=== PATIENT | female | born 1955 | race Caucasian/White ===

== ENCOUNTER 2025-02-12 14:36 | Outpatient (CLI) | payer MEDICARE, OTHER, SELFPAY ==
--- NOTE | 2025-02-12 14:40 | MM_ITS ---
WS: [id number] BILATERAL 3D TOMOSYNTHESIS DIGITAL SCREENING MAMMOGRAPHY WITH CAD CLINICAL INFORMATION: SCREENING HISTORY: Screening mammogram. No current complaints. COMPARISON: 2016 TECHNIQUE: Bilateral CC and MLO views. FINDINGS: No recent comparisons. Comparison 2016. Bilateral breast implants. Scattered fibroglandular densities bilaterally. No suspicious focal mass, asymmetry, calcifications, or architectural distortion. No evidence of malignancy. MM/MM scr tomosynthesis [id number] IMPRESSION: DENSITY: There are scattered areas of fibroglandular density. BI-RADS: 2 - Benign. FOLLOW UP: 1 Year Follow-up Recommend return to annual screening mammography.
== END 2025-02-12 14:37 | disposition home or self-care (01) ==
LOC: RAD 14:39
PROVIDERS: Family Provider Nurse Practitioner Family; PCP Family Medicine; Visit Provider Family Medicine
DX: Z12.31 Encounter for screening mammogram for malignant neoplasm of breast (principal); R92.323 Mammographic fibroglandular density, bilateral breasts
CPT/HCPCS: 77063; 77067

== ENCOUNTER 2025-02-14 07:09 | Outpatient (CLI) | payer MEDICARE, OTHER, SELFPAY ==
--- NOTE | 2025-02-14 07:19 | CT_ITS ---
WS: [id number] CT HEAD TECHNIQUE: Noncontrast and contrast-enhanced CT of the head. CLINICAL INFORMATION: INTERMITTENT CONFUSION COMPARISON: None. DLP: 2098.[address] scans at [facility] use at least one of these dose optimization techniques: automated exposure control; mA and/or kV adjustment per patient size (includes targeted exams where dose is matched to clinical indication); or iterative reconstruction. FINDINGS: No evidence of intracranial hemorrhage or mass effect. Ventricular system is patent. No extra-axial fluid collections. No evidence of mass or mass effect. No abnormal intracranial enhancement. Minimal small vessel changes. Paranasal sinuses are well aerated. Mastoid air cells are well aerated. CT/CT head wo/w con [id number] IMPRESSION: 1. No evidence intracranial hemorrhage or mass effect. 2. No abnormal intracranial enhancement. 3. Minimal small vessel changes. 4. Vascular calcification.
[2025-02-14 07:43] LABS: Blood Urea Nitrogen 9 mg/dL (8-23); Glomerular Filtration Rate 99.7 mL/min (90-130)
[2025-02-14] MEDS: iohexol 350 mg/mL 500 mL Btl (per mL) IV (07:48)
== END 2025-02-14 07:10 | disposition home or self-care (01) ==
PROVIDERS: PCP Family Medicine; Visit Provider Family Medicine
DX: R41.0 Disorientation, unspecified (principal); I67.2 Cerebral atherosclerosis
CPT/HCPCS: 70470; 82565; 84520

== ENCOUNTER 2025-06-23 15:55 | Outpatient (CLI) | payer MEDICARE, OTHER, SELFPAY ==
--- NOTE | 2025-06-23 16:05 | CTR_ITS ---
PROCEDURE INFORMATION: Exam: CT Maxillofacial Without Contrast Exam date and time: 06/23/2025 4:17 PM Age: 69 years old Clinical indication: Injury or trauma; Fall; Blunt trauma (contusions or hematomas); Cheek bone and maxilla and other: Chin; Injury date: 06-23-25; Fell down stairs at Dr office today, contusions to right cheek and RT chin area; Additional info: Closed head injury TECHNIQUE: Imaging protocol: Computed tomography of the face without contrast. Radiation optimization: All CT scans at this facility use at least one of these dose optimization techniques: automated exposure control; mA and/or kV adjustment per patient size (includes targeted exams where dose is matched to clinical indication); or iterative reconstruction. COMPARISON: CT head wo con* [id number] 06/23/2025 4:15 PM RADIATION DOSE METRICS: Total DLP (mGy-cm): 658.05 FINDINGS: Paranasal sinuses: No air-fluid levels. Orbital cavities: Orbits are normal. Globes are unremarkable. Bones: No acute fracture. Soft tissues: Unremarkable. CT/CT facial bones wo con* [id number] IMPRESSION: No acute findings.
--- NOTE | 2025-06-23 16:05 | CTR_ITS ---
PROCEDURE INFORMATION: Exam: CT Head Without Contrast Exam date and time: 06/23/2025 4:15 PM Age: 69 years old Clinical indication: Injury or trauma; Fall; Blunt trauma (contusions or hematomas); Without loss of consciousness; Injury date: 06-23-25; Injury details: Fell down steps at Dr office, contusions to right of rastafarian; Contusion to right rastafarian area, bruising and painful; Additional info: Closed head injury TECHNIQUE: Imaging protocol: Computed tomography of the head without contrast. Radiation optimization: All CT scans at this facility use at least one of these dose optimization techniques: automated exposure control; mA and/or kV adjustment per patient size (includes targeted exams where dose is matched to clinical indication); or iterative reconstruction. COMPARISON: CT head wo/w con [id number] 02/14/2025 7:47 AM RADIATION DOSE METRICS: Total DLP (mGy-cm): 1036.38 FINDINGS: Brain: Normal. No hemorrhage. Unremarkable white matter. No mass effect or acute infarct. Cerebral ventricles: No ventriculomegaly. No midline shift. Paranasal sinuses: Visualized sinuses are unremarkable. No fluid levels. Mastoid air cells: Visualized mastoid air cells are well aerated. Bones: Unremarkable. No acute fracture. Soft tissues: Unremarkable. CT/CT head wo con* [id number] IMPRESSION: No acute intracranial abnormality.
== END 2025-06-23 15:56 | disposition home or self-care (01) ==
LOC: RAD 15:58
PROVIDERS: PCP Family Medicine; Visit Provider Electrodiagnostic Medicine
DX: S09.8XXA Other specified injuries of head, initial encounter (principal); W10.9XXA Fall (on) (from) unspecified stairs and steps, initial encounter
CPT/HCPCS: 70450; 70486

== ENCOUNTER → 2025-06-24 13:24 | Outpatient (BNVA) | payer MEDICARE, OTHER, SELFPAY | PROVIDERS: PCP Family Medicine; Visit Provider Student in an Organized Health Care Education/Training Program | DX: S62.616A Displaced fracture of proximal phalanx of right little finger, initial encounter for closed fracture (principal); S52.501A Unspecified fracture of the lower end of right radius, initial encounter for closed fracture; W19.XXXA Unspecified fall, initial encounter | CPT/HCPCS: 73110; 73130; 99204 ==

== ENCOUNTER 2025-06-25 05:00 | Outpatient (CLI) | payer MEDICARE, OTHER, SELFPAY | END 2025-06-25 05:01 | LOC: SOT 07-11 11:11 | PROVIDERS: Visit Provider Physician Assistant | DX: Z46.89 Encounter for fitting and adjustment of other specified devices (principal); S62.619A Displaced fracture of proximal phalanx of unspecified finger, initial encounter for closed fracture; S52.501A Unspecified fracture of the lower end of right radius, initial encounter for closed fracture; W10.9XXA Fall (on) (from) unspecified stairs and steps, initial encounter | CPT/HCPCS: 97760; L3906 ==

== ENCOUNTER 2025-06-26 09:45 | Day surgery (SDC) | payer MEDICARE, OTHER, SELFPAY ==
[2025-06-26] VITALS (7 sets, daily range): BP systolic 133–155; BP diastolic 58–86; PULSE 64–89; RESP 14–17; TEMP 36.7–37.2; O2SAT 91–97; BMI 25.8
--- NOTE | 2025-06-26 | XR_ITS ---
WS: [id number] 3 views of the right fifth finger, 06/26/2025 Clinical Data: right fifth proximal phalanx ORIF. Comparison: Right hand, 06/24/2025 Findings: Dr. Marroquin reduced the fracture of the right fifth finger proximal phalanx with internal fixation. XR/XR finger RT min 2V [id number] Impression: Internal fixation of fracture of right fifth finger proximal phalanx.
--- NOTE | 2025-06-26 10:21 | W.PM.OPSUD ---
Surgery/Procedure H&P Update DATE OF PROCEDURE: June 26, 2025 DATE H&P PERFORMED: 06/24/25 H&P UPDATE INFORMATION: I have reviewed H&P completed within last 30 days, I have examined patient prior to procedure and No changes to prior documentation PREOP DIAGNOSIS: Right small finger proximal phalanx fracture, right distal radius fracture PRIMARY INDICATION FOR PROCEDURE: Right small finger proximal phalanx fracture, right distal radius fracture PLANNED PROCEDURE: Operation Date: 06/26/25 11:40 Proposed Procedures p Open Reduction Internal Fixation RIGHT Small Finger Proximal Phalanx(Right) - Levi Marroquin DO s Open Reduction Internal Fixation RIGHT Distal Radius(Right) - Levi Marroquin DO
--- NOTE | 2025-06-26 10:37 | ANES.PREANE2 ---
Pre-Anesthetic Assessment Height/Weight: Height 5 ft 8 in Weight 170 lb O2 Del Method Room Air 06/26/25 10:14 Preop Diagnosis: Right small finger proximal phalanx fracture, right distal radius fracture Operation Date: 06/26/25 11:40 Proposed Procedures p Open Reduction Internal Fixation RIGHT Small Finger Proximal Phalanx(Right) - Levi Dickson, DO s Open Reduction Internal Fixation RIGHT Distal Radius(Right) - Levi Dickson, DO Was Beta Silvestre taken within 24 hours: N/A Was Clonidine taken within 24 hours: N/A Last intake: Intake Last Liquid Date 06/25/25 Last Liquid Time 23:30 Last Solid Date 06/25/25 Last Solid Time 20:00 Social No alcohol and No tobacco Exam alert, oriented x 3, clear to auscultation bilaterally and regular rate & rhythm Airway Submandibular: within normal limits Cervical ROM: within normal limits Mallampati: Class II Dentition: full Anesthetic Plan ASA status: 2 Anesthesia: MAC and Regional (specify below) Other: No prior issues with anesthesia NPO since yesterday evening Patient states that she gets extreme PVCs when she is put under general anesthesia and this has happened multiple times. Accounts this to taking phentermine in the past Denies any other cardiac issues or any pulmonary problems METs greater than 4 Plan for MAC anesthesia with preop nerve block Medications/Allergies Home Medications ?Medication ?Instructions ?Recorded ?Confirmed ?Last Taken ?Type celecoxib 100 mg capsule (Celebrex) 100 mg PO BID 06/24/25 06/25/25 06/23/25 History Allergies Allergy/AdvReac Type Severity Reaction Status Date / Time Sulfa (Sulfonamide Allergy Severe angioedema Verified 06/24/25 13:35 Antibiotics) bee venom protein (honey bee) Allergy Unknown swelling Verified 06/24/25 13:35 [facility] Anesthesia Social History Smoking and tobacco/nicotine status: never used tobacco/nicotine
[2025-06-26] MEDS: acetaminophen 1,000 MG/100 ML PIGGYBACK 400 MG IV (11:16)
[2025-06-26] MEDS: ceFAZolin 2,000 MG in sodium chloride 0.9% (plus) 50 ML 100 MG IV (11:37)
--- NOTE | 2025-06-26 13:04 | ANES.PROC ---
Anesthesia Procedures Procedure/Date: 06/26/25 Nerve Block ^: Nerve Block 1: Main Anesthesia: other (100 mcg fentanyl) Time Out Performed: Yes Consent: requested by attending/covering physician and from patient Laterality: Right Nerve block location: supraclavicular Anesthesia monitors applied: pulse oximetry, EKG, BP cuff and oxygen Nerve block position: supine Anesthetic Used: ropivicaine 0.5% Amount of anesthesia used (mL): 30 Ultrasound used to: recognize landmarks Nerve Stimulator Used?: Yes Interscalene/Femoral BLK: other needle (pjunk 4inch) Injection: neg aspiration of heme Patient Tolerated Procedure: well Complications: none Additional Comments: Decadron 4 mg added to block
--- NOTE | 2025-06-26 14:20 | P.BOP_ITS ---
Date of Procedure: [06/26/2025] Surgeon: [ Levi Marroquin DO] [employer] Operations Staff Officer(s): [James Marroquin PA-C] Procedure(s) performed: Right distal radius open reduction internal fixation (2 part extra-articular) Right small finger proximal phalanx open reduction internal fixation Findings of the procedure(s): [Patient underwent procedure as planned without issues or complications taken recovery in stable condition.] Estimated blood loss: [15 mL] Specimen(s) removed: [None] Post-operative diagnosis: [Right distal radius 2 part extra-articular, right small finger proximal phalanx fracture]
--- NOTE | 2025-06-26 14:20 | PM.PACU ---
PACU note Narrative: Patient is a 69-year-old female that just underwent a right distal radius ORIF and right fifth proximal phalanx ORIF. Patient transferred to PACU in stable condition. Pain is well controlled. Dressing and splint on hand is dry and in place. Patient's fingers are warm and well-perfused. normal cap refill under 2 seconds. Unable to form any further assessment of motor sensation due to residual nerve block Exam: awake Disposition: discharged
--- NOTE | 2025-06-26 15:22 | ANE.PACU2 ---
Inpatient post-anesthesia follow up: Airway intact: Yes Vital signs: Temperature 98.3 F Pulse Rate 64 Respiratory Rate 17 Blood Pressure 155/71 Pulse Oximetry 92 Oxygen Delivery Me thod Room Air Oxygen Flow Rate Fraction of Inspir ed Oxygen Hydration adequate: Yes Nausea and vomiting: No Pain level: 1 Mental status: Baseline
--- NOTE | 2025-06-30 23:02 | P.OP_ITS ---
Operative Report Date of procedure: June 30, 2025 Surgeon: Levi Marroquin DO Utility Worker [employer]: James Marroquin PA-C: PA was necessary for assistance in this case with hand positioning to execute the procedure, retraction and protection of neurovascular structures as well as to assist with fracture reduction and fixation, wound closure and dressing and splint application. Procedure: Preop Diagnosis ? Right?distal?radius fracture Right small finger proximal phalanx fracture ? Procedure: Post-op diagnosis: Same, 2 part extra-articular Procedure done: Right?distal?radius open reduction internal fixation, 2-part extra-articular Right small finger proximal phalanx open reduction internal fixation Implants: Right distal radius fracture ?Arthrex Right 3-hole standard volar locking plate Combination of locking and nonlocking screws 2.7 mm?distal Combination of locking and nonlocking screws 3.5 mm proximal Right small finger proximal phalanx fracture Arthrex mini CFS plating system 1.4 mm 5 hole plate with a combination of 1.4 mm locking and nonlocking screws Surgeon: Levi Marroquin DO Anesthesia: General and nerve Block (Regional) Estimated blood loss: 15 mL Tourniquet time: 26 minutes?distal radius Tourniquet let down and distal radius closed 71-minute?proximal phalanx fracture IV fluids: See anesthesia record Complications: None Findings: See operative report narrative Condition: stable Disposition: same day Brief History: Patient is a 69-year-old female who presented to my office for a [id number] Right?distal?radius fracture and right small finger proximal phalanx fracture.? Patient has significant comminution and angulation of both the radius and proximal phalanx fractures. patient active and at this point time through shared decision making patient like to proceed with a Right?distal?radius ORIF and a right small finger proximal phalanx ORIF. we had a detailed discussion in the office about nonoperative and operative intervention.? At this point time I feel through shared decision? best option would be open reduction internal fixation she is active and already has a considerable deformity?? as result through shared decision making patient would like to proceed with ORIF Right?distal?radius fracture and right small finger proximal phalanx ORIF.? Detail the risk benefits complication alternatives to treatment option.? Understanding risk for surgery patient elects to proceed with surgical intervention.? All questions been answered at this time. Procedure: Patient seen and evaluated in the preoperative holding area.? Consent reviewed and signed with patient.? Correct extremities were marked and consent was reviewed and signed.? Patient was seen and evaluated by anesthesia department.? Underwent regional anesthesia. Once cleared for surgery pt was taken back to the operative suite.? Patient was then transported into the operative suite and kept on the OR gurney, all bony prominences well-padded patient was appropriate secured to bed in supine position.? An armboard was applied to the Right upper extremity.? The Right upper extremity had a nonsterile tourniquet applied.? Patient subsequently was then prepped and draped in standard orthopedic fashion she underwent anesthesia per the anesthesia department.? A final timeout was performed.? Patient received appropriate preoperative antibiotics. Esmarch was used exsanguinate the Right upper extremity and tourniquet was insufflated to 250 mmHg. A standard modified FCR volar approach was performed to the Right?distal?radius.? Sharp scalpel incision through skin and subcutaneous tissue.? I then switched to Littler dissection scissors identify the FCR tendon releases out of the sheath both proximally and?distally mobilized the tendon ulnarly and then subsequently incised the floor of the FCR tendon sheath with care to just incise the floor.? I then bluntly sweep the FPL tendon muscle belly ulnarly and placed blunt self-retaining retractor.? At this point time I direct visualization of the pronator quadratus which was incised in standard L fashion off the?radial and?distal?border in the?distal?radius and fracture site was scraped clean of interposed muscle belly.? I then identified the 2 part extra- articular?distal?radius fracture.? This was subsequently opened above and freed of interposing muscle belly as well as periosteum and fracture hematoma.? I did have to utilize my Newton which was placed through the fracture pattern and disengage the fracture and performed manual manipulation and anatomic reduction of the?distal?radius fracture.? ?Once satisfied with reduction and had appropriate anatomic reduction of the volar cortex.? This was confirmed with mini C arm in multiple orthogonal imaging.? At this point time? I selected a Arthrex anatomic?distal?radius plate utilizing a standard 3-hole plate which would have appropriate spread?distally.? This was then placed up to the?distal?radius while maintaining my reduction, pins were placed?distally and proximally to confirm appropriate placement of the plate along the?distal?radius.? Minor adjustments were made and once I was satisfied I then subsequently drilled a bicortical 3.5 screw proximally in the oblong hole to allow for appropriate sliding of the?distal?radius plate appropriately to perfect position on the?distal?radius.? This had excellent fixation and purchase and brought the plate to bone.? While maintaining my reduction I then confirmed in multiple orthogonal imaging that my plate was in appropriate position.? Once satisfied with my position I then subsequently placed the peek targeting guide on the?distal?locking screws with Arthrex.? The locking guide was then subsequently loaded and I subsequently drilled and placed a fully threaded cortical screw to compress the plate to bone for the?distal?fracture fragment.? This was performed with plan to then remove this and placed a shorter locking screw had bicortical fixation with excellent purchase and appropriate reduction of my volar tilt and bringing plate to bone of the?distal?fragment and plate.? Once I was satisfied with my plate position as well as reduction of the?distal?radius which was confirmed on AP oblique and lateral imaging I then subsequently drilled measured and placed 4 locking screws around this cortical screw.? Then I subsequently removed the cortical screw and placed a shorter locking screw that did not penetrate the dorsal cortex.?? This completed my?distal?fixation.? I did utilize mini C arm to confirm appropriate placement of the screws these were all within the?distal?radius and no joint involvement within the?radiocarpal joint or the DRUJ.? These had appropriate subchondral support and maintenance of reduction and fixation of the?distal?radius fracture.? ?I then turned my attention proximally and then I screwed in the locking guides for my final to screws proximally these were then subsequently drilled measured and appropriate length locking screws were then placed proximally with excellent fixation and locking technology into the plate.? This completed my construct.? The peek guide was subsequently removed and final imaging of the Right?distal?radius open reduction internal fixation was taken of AP lateral as well and is orthogonal imaging.? I then took a inclination view which showed my?radial styloid screw was out of the penetration of the joint.? All my?distal?screws were appropriate length did not penetrate dorsal cortex and did not penetrate the joint.? This completed my fixation.? Smooth wrist range of motion was then noted with no evidence of clicking. Wrist was then taken through pronation supination and stressed the DRUJ which was found to be stable.? The wound was then thoroughly irrigated.? Tourniquet was then subsequently deflated.? Hemostasis satisfactory with bipolar electrocautery.? I then subsequently placed interrupted 3-0 Vicryl sutures for subcutaneous tissue and then subsequently placed a nylon the skin for closure.? At this point in time this completed the distal radius portion of the procedure I then subsequently moved to the head of the bed and plan to proceed with surgical intervention for the right small finger proximal phalanx fracture. This point in time fluoroscopic imaging was attention towards the proximal phalanx fracture with significant deformity displacement. At this point in time I subsequently made a standard direct dorsal longitudinal incision over the fracture site of the proximal phalanx incision through skin and subcutaneous tissue I protected neurovascular branches through my dissection came on the extensor mechanism. Full-thickness skin flaps. At this point in time I identified the extensor mechanism and then split this longitudinally directly down to bone I then subperiosteally elevated around the fracture site. Fracture hematoma encountered and thorough irrigation performed to identify it fracture pattern for fracture reduction. At this point in time there is enough stock proximally for a T plate. At this point in time I then subsequently had to utilize a towel clip to hold my reduction. While I held my reduction I subsequently selected a 5 hole 1.4 mm Arthrex mini CFS plate there was a T shaped plate with the T being proximally over the proximal fracture fragment. At this point in time while holding this in place I then subsequently held the reduction and then brought in mini fluoroscopic imaging to confirm satisfactory plate placement. At this point in time I then subsequently drilled and placed a cortical screw in the shaft to get good plate to bone interface on my distal fracture fragment. I then subsequently did the same thing proximally. Once this was secured to bone I then subsequently placed additional locking screws to lock the plate distally. I then once this was then performed I then subsequently moved and placed locking screws proximally at this point in time I satisfied with my fracture reduction and alignment plate placement. I then subsequently removed the oblong hole screw as this no longer had any significant purchase and this was in the oblong hole I am able to put a lock in this position. As a result I completed placing the rest of the locking screws in the distal fracture fragment and then subsequently placed additional locking screws proximally. This had 2 locking screws unfortunately was unable to switch out and get a locking screw fixation and the cortical screw no longer had any significant purchase and to avoid having the screw backout the screw was then subsequently removed and unfortunately multiple attempts were tried but given the plate and half and a contour this to the bone the screw was unable to lock into the locking plate mechanism this still left knee with 2 solid screws with locking fixation proximally as well as multiple screws distally. This completed the fixation of the proximal phalanx of the small finger this multiple orthogonal images were taken and had satisfactory position satisfactory screw placement and length. I then subsequently took the finger through range of motion and had excellent fracture stability and no loss of reduction this completed my fixation. Tourniquet deflated hemostasis satisfactory thorough irrigation performed. I then closed the tensor mechanism with the longitudinal split and reapproximated this with interrupted Monocryl sutures 4 -0, skin was then reapproximated with interrupted 4-0 nylon suture. Patient was then dressed on both incision with Xeroform 4 x 4's Curlex Jaison wrap and an ulnar gutter with a reinforced volar splint was applied. Patient was then awakened from anesthesia taken recovery in stable condition. Disposition: Patient taken recovery in stable condition recovering well receive appropriate discharge structure as well as pain medication postoperatively will maintain splint until follow-up. Patient family understand agree with current plan. All questions answered. Incision was then dressed with Xeroform 4 x 4's Kerlix cast padding and a volar Ortho-Glass splint was then applied with Teofilo wrap and placed in a sling.? Disposition: Patient taken to PACU in stable condition recovering well receive appropriate discharge instructions as well as pain medication postoperatively.? Maintain splint until follow-up.? Nonweightbearing to operative upper extremity We will follow-up with Dr. Marroquin in the office in 2 weeks.? If any questions or concerns feel free to contact the office.
== END 2025-06-26 15:22 | disposition home or self-care (01) ==
PROVIDERS: PCP Family Medicine; Visit Provider Student in an Organized Health Care Education/Training Program
PROC: (CPT 25608; principal; 2025-06-26 11:40)
PROC: (CPT 25608; 2025-06-26 11:40)
DX: S52.501A Unspecified fracture of the lower end of right radius, initial encounter for closed fracture (principal); S62.616A Displaced fracture of proximal phalanx of right little finger, initial encounter for closed fracture; W18.39XA Other fall on same level, initial encounter
CPT/HCPCS: 25608; 26735; 73140; 76000; C1713 ×2; J0131; J0690; J1100; J1885; J2405; J2704; J3010; J7030; J9999

== ENCOUNTER → 2025-07-09 14:34 | Outpatient (BNVA) | payer MEDICARE, OTHER, SELFPAY | PROVIDERS: PCP Family Medicine; Visit Provider Physician Assistant | DX: Z98.890 Other specified postprocedural states (principal) | CPT/HCPCS: 73110; 73130; 99024 ==

== ENCOUNTER 2025-07-15 10:43 | Outpatient (RCR) | payer MEDICARE, OTHER, SELFPAY | END 2025-07-25 23:59 | disposition home or self-care (01) | LOC: SOT 10:43 | PROVIDERS: Visit Provider Student in an Organized Health Care Education/Training Program | DX: S62.619A Displaced fracture of proximal phalanx of unspecified finger, initial encounter for closed fracture (principal); S52.501A Unspecified fracture of the lower end of right radius, initial encounter for closed fracture; X58.XXXA Exposure to other specified factors, initial encounter | CPT/HCPCS: 97022; 97110; 97140; 97166; 97530 ==

== ENCOUNTER → 2025-07-25 10:46 | Outpatient (BNVA) | payer MEDICARE, OTHER, SELFPAY | PROVIDERS: Visit Provider Physician Assistant | DX: S52.501A Unspecified fracture of the lower end of right radius, initial encounter for closed fracture (principal); S62.622A Displaced fracture of middle phalanx of right middle finger, initial encounter for closed fracture; X58.XXXA Exposure to other specified factors, initial encounter | CPT/HCPCS: 73110; 73130; 99024 ==

== ENCOUNTER 2025-07-26 05:00 | Outpatient (RCR) | payer OTHER, MEDICARE, SELFPAY | END 2025-08-24 23:59 | disposition home or self-care (01) | LOC: SOT 05:00 | PROVIDERS: Visit Provider Student in an Organized Health Care Education/Training Program | DX: S62.619A Displaced fracture of proximal phalanx of unspecified finger, initial encounter for closed fracture (principal); S52.501A Unspecified fracture of the lower end of right radius, initial encounter for closed fracture; X58.XXXA Exposure to other specified factors, initial encounter | CPT/HCPCS: 97022; 97110; 97140 ==

== ENCOUNTER → 2025-08-08 09:58 | Outpatient (BNVA) | payer OTHER, MEDICARE, SELFPAY | PROVIDERS: Visit Provider Physician Assistant | DX: Z98.890 Other specified postprocedural states (principal); Z46.89 Encounter for fitting and adjustment of other specified devices; S52.501D Unspecified fracture of the lower end of right radius, subsequent encounter for closed fracture with routine healing; S62.619D Displaced fracture of proximal phalanx of unspecified finger, subsequent encounter for fracture with routine healing; X58.XXXD Exposure to other specified factors, subsequent encounter | CPT/HCPCS: 73110; 73130 ==

== ENCOUNTER 2025-08-08 10:20 | Outpatient (CLI) | payer MEDICARE, OTHER, SELFPAY | END 2025-08-08 10:21 | disposition home or self-care (01) | LOC: SPT 10:21 | PROVIDERS: Visit Provider Physician Assistant | DX: Z46.89 Encounter for fitting and adjustment of other specified devices (principal); S52.501D Unspecified fracture of the lower end of right radius, subsequent encounter for closed fracture with routine healing; S62.619D Displaced fracture of proximal phalanx of unspecified finger, subsequent encounter for fracture with routine healing; X58.XXXD Exposure to other specified factors, subsequent encounter | CPT/HCPCS: 99024; L3908 ==

== ENCOUNTER 2025-08-25 05:00 | Outpatient (RCR) | payer MEDICARE, OTHER, SELFPAY | END 2025-09-24 23:59 | disposition home or self-care (01) | LOC: SOT 05:00 | PROVIDERS: Visit Provider Student in an Organized Health Care Education/Training Program | DX: S52.501A Unspecified fracture of the lower end of right radius, initial encounter for closed fracture (principal); S62.619A Displaced fracture of proximal phalanx of unspecified finger, initial encounter for closed fracture; X58.XXXA Exposure to other specified factors, initial encounter | CPT/HCPCS: 97022; 97110; 97140 ==

== ENCOUNTER → 2025-09-05 08:35 | Outpatient (BNVA) | payer SELFPAY | PROVIDERS: Visit Provider Physician Assistant | DX: Z98.890 Other specified postprocedural states (principal) | CPT/HCPCS: 73110; 73130 ==